=== PATIENT | male | born 1985 | race Caucasian/White ===

== ENCOUNTER 2022-04-18 10:01 | Emergency (ER) | payer OTHER, SELFPAY ==
--- NOTE | 2022-04-18 10:23 | ED.GENADULT ---
HPI - General Adult General Chief complaint: Upper Respiratory Infection Stated complaint: cold / flu symptoms Time Seen by Provider: 04/18/22 10:22 Source: patient Mode of arrival: ambulatory Limitations: no limitations History of Present Illness HPI narrative: 36-year-old male patient presents to the [facility] with complaints of cold and flu-like symptoms. Patient states he was diagnosed with strep about 2 weeks ago and was given amoxicillin and start feeling better. Patient states about 2 days ago he started having cough, congestion, body aches, chills and feeling feverish. Patient states he never actually measured his fever. Patient states he has been taking [id number] DayQuil NyQuil. Patient states he no longer has the strep symptoms that he had 2 weeks ago. Patient states he did get his initial COVID vaccine but denies any booster and denies getting a flu shot this year. Related Data Home Medications Medication Instructions Recorded Confirmed amoxicillin 500 mg capsule 500 mg PO BID 04/18/22 04/18/22 Allergies Allergy/AdvReac Type Severity Reaction Status Date / Time Sulfa (Sulfonamide Allergy Unknown Unknown Verified 04/18/22 10:43 Antibiotics) sulfanilamide Allergy Unknown Unknown Verified 04/18/22 10:43 Review of Systems Review of Systems: CONSTITUTIONAL: Denies fever, Positive body aches and chills, denies sweats. EYES: Denies visual changes, redness, or discharge. ENT: positive rhinorrhea, congestion, deniessore throat, or otalgia. CARDIOVASCULAR: Denies chest pain, palpitations, or edema. RESPIRATORY: positive cough denies dyspnea. GASTROINTESTINAL: Denies abdominal pain, nausea, vomiting, or diarrhea. GENITOURINARY: Denies dysuria or hematuria. SKIN: Denies rash or itching. MUSCULOSKELETAL: Denies back pain, joint pain, or myalgia. NEUROLOGIC: Denies headache, numbness, or weakness. PSYCHIATRIC: Denies anxiety or depression. 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 There is no relevant family history pertinent to the presenting complaint. Exam Narrative: GENERAL: Well-appearing, well-nourished, and in no acute distress. HEAD: Normocephalic, atraumatic. EYES: PERRLA and EOMI. ENT: Nares clear, no rhinorrhea or epistaxis. Mucous membranes moist. posterior pharynx no erythema, tonsillectomy, exudates or lesions present. Bilateral TMs are clear no erythema foreign bodies the canal. NECK: Supple. No lymphadenopathy CHEST: Clear to auscultation. No respiratory distress. Patient will talk clear complete sentences. No coughing noted during exam. HEART: Regular rate and rhythm. No murmur heard. Normal peripheral pulses. ABDOMEN: Soft, nontender, nondistended, normal active bowel sounds. EXTREMITIES: Normal range of motion. No edema. SKIN: Warm, dry, no rash. NEURO: No focal deficits. Alert and oriented x3. Course Course Level of Care: Express Care Visit Reevaluation(s) Reevaluation #1: Re-evaluated patient notified him that the COVID and flu swabs today are negative. Discussed with patient he most likely does hav
[2022-04-18 10:55] VITALS: BP 169/89; PULSE 85; RESP 20; TEMP 36.9; O2SAT 99
== END 2022-04-18 11:30 | disposition home or self-care (01) ==
PROVIDERS: Emergency Provider Nurse Practitioner Family; PCP Physician Assistant Medical
DX: J06.9 Acute upper respiratory infection, unspecified (principal); Z20.822 Contact with and (suspected) exposure to COVID-19; I51.7 Cardiomegaly
CPT/HCPCS: 87426; 87804; 99213; C9803; G0463